=== PATIENT | male | born 1960 | race Caucasian/White ===

== ENCOUNTER 2018-04-04 00:27 | Emergency (ER) | payer SELFPAY ==
[~2018-04-04] VITALS: Ht 180.3 cm; Wt 88.5 kg
[2018-04-04 00:33] VITALS: BP 131/86
[2018-04-04] MEDS ORDERED: MECLIZINE 12.5 MG TABLET. ONE (00:54)
--- NOTE | 2018-04-04 01:29 | ED.ADGEN ---
PROVIDER NOTE PROVIDER NOTE PROVIDER NOTE This patient encounter was documented during downtime. Please refer to paper copy for details of visit. NORMA HUANG MD Apr 04, 2018 01:29
== END 2018-04-04 01:07 | disposition home or self-care (01) ==
LOC: ER 00:27
DX: H83.01 Labyrinthitis, right ear (principal); R42 Dizziness and giddiness
CPT/HCPCS: 99282

== ENCOUNTER → 2021-01-28 | Outpatient (CLI) | payer OTHER ==
--- NOTE | 2021-01-28 16:03 | RAD ---
EXAM: AP, lateral and open-mouth odontoid views of the cervical spine DATE: 01/28/2021 11:41 AM CLINICAL HISTORY: Reason: NECK PAIN, PAIN IN BETWEEN SHOULDER BLADES / Spl. Instructions: / History: COMPARISON: None available. FINDINGS: On the lateral view, the cervical spine is imaged from the skull base to superior C6. Vertebral body heights are preserved. Mild C2-3, C5-6 disc height loss. Moderate C3-4 and C4-5 disc h eight loss. Straightening of the normal cervical lordosis. No spondylolisthesis. No offset of the lateral masses of C1 on C2. Normal predental space. No significant prevertebral soft tissue swelling. IMPRESSION: 1. Multilevel spondylosis as above 2. Negative acute fracture or subluxation. Electronically signed by: Tacos Khan MD (01/28/2021 4:00 PM) [id number]
== END ==
LOC: RAD 11:37
PROVIDERS: ATTEND Family Medicine
DX: M47.812 Spondylosis without myelopathy or radiculopathy, cervical region (principal); M50.21 Other cervical disc displacement, high cervical region
CPT/HCPCS: 72040

== ENCOUNTER → 2021-03-02 | Outpatient (CLI) | payer MEDICAID ==
--- NOTE | 2021-03-02 17:14 | RAD ---
History: Low back pain. Comparison: None available. Technique: Three views of the lumbar spine. Findings: Vertebral body height and alignment are normal. No acute fracture. No evidence of spondylol ysis or spondylolisthesis. There is mild intervertebral disc space narrowing at L4-L5 and also L3-L4. There is multilevel endplate remodeling with marginal to small osteophytes throughout the visualized thoracolumbar spine. Mild to moderate lateral facet arthrosis most pronounced at the L3-S1 levels. M oderate degenerative arthrosis of bilateral SI joints. Atherosclerotic disease of the visualized abdo andrey aorta. IMPRESSION: 1. No evidence of acute osseous injury of the lumbar spine. 2. Mild to moderate multilevel degenerative changes, as above. Electronically signed by: Imtiaz Fair DO (03/02/2021 5:12 PM) [facility]
--- NOTE | 2021-03-02 18:21 | RAD ---
EXAM: 2 views left scapula DATE: 03/02/2021 10:45 AM INDICATION: LOW BACK AND UPPER BACK PAIN COMPARISON: No Prior FINDINGS: There is no evidence for acute fracture or dislocation. AC joint is congruent. Left AC joint degenera tive changes are seen. Left shoulder joint osteoarthritis with joint space narrowing and bulky inferi or projecting osteophytes. Humeral head is not high riding. IMPRESSION: 1. No acute fracture or dislocation. 2. Left AC joint and glenohumeral joint degenerative changes are seen. Electronically signed by: Tacos Khan MD (03/02/2021 6:18 PM) [facility]
== END ==
LOC: RAD 10:27
PROVIDERS: ATTEND Family Medicine
DX: M47.817 Spondylosis without myelopathy or radiculopathy, lumbosacral region (principal); M51.36 Other intervertebral disc degeneration, lumbar region; M48.061 Spinal stenosis, lumbar region without neurogenic claudication; M25.78 Osteophyte, vertebrae; M19.012 Primary osteoarthritis, left shoulder; I70.0 Atherosclerosis of aorta; M89.8X1 Other specified disorders of bone, shoulder
CPT/HCPCS: 72100; 73010